=== PATIENT | male | born 1980 | race Caucasian/White ===

== ENCOUNTER → 2021-10-21 13:36 | Outpatient (BNVA) | payer OTHER, SELFPAY | PROVIDERS: Visit Provider Surgery | DX: K92.1 Melena (principal) | CPT/HCPCS: 99203 ==

== ENCOUNTER 2021-10-27 06:00 | Outpatient (RCR) | payer OTHER, SELFPAY | END 2021-11-17 23:59 | disposition home or self-care (01) | LOC: SPT 06:00 | PROVIDERS: Visit Provider Emergency Medicine Emergency Medical Services | DX: M54.50 Low back pain, unspecified (principal) | CPT/HCPCS: 97110; 97161 ==

== ENCOUNTER 2021-11-18 06:00 | Outpatient (RCR) | payer OTHER, SELFPAY | END 2021-12-17 23:59 | disposition home or self-care (01) | LOC: SPT 06:00 | PROVIDERS: Visit Provider Emergency Medicine Emergency Medical Services | DX: M54.50 Low back pain, unspecified (principal) | CPT/HCPCS: 97110 ==

== ENCOUNTER 2021-11-25 07:26 | Day surgery (SDC) | payer OTHER, SELFPAY ==
[2021-11-24 10:36] VITALS: BMI 26.1
[2021-11-25] VITALS (8 sets, daily range): BP systolic 110–136; BP diastolic 60–91; PULSE 62–74; RESP 12–18; TEMP 36.2–36.8; O2SAT 96–98
--- NOTE | 2021-11-25 08:18 | ANES.PREANE2 ---
Pre-Anesthetic Assessment Height/Weight: Height 1.91 m Weight 94.801 kg Temp Pulse Resp BP Pulse Ox O2 Del Method 98.3 F 65 16 127/82 96 11/25/21 08:04 11/25/21 08:04 11/25/21 08:04 11/25/21 08:04 11/25/21 08:04 11/25/21 08:06 Operation Date: 11/25/21 09:10 Proposed Procedures p colonoscopy with poss hemrroid banding 62321 [id number],K92.1(Not Applicable) - Jh Meza DO s Hemorroidectomy Hemorrhoid Banding(Not Applicable) - Jh Meza DO Familial anesthetic complications: None Was Beta Neptali taken within 24 hours: N/A Was Clonidine taken within 24 hours: N/A Last intake: Intake Last Liquid Date 11/24/21 Last Liquid Time 22:00 Last Solid Date 11/23/21 Last Solid Time 20:00 Social No alcohol and No tobacco Exam alert, oriented x 3, clear to auscultation bilaterally and regular rate & rhythm Airway Mallampati: Class I Comments: Comments: sainz Anesthetic Plan ASA status: 1 Anesthesia: Choice Risk of > 500 ml blood loss (7ml/kg in children): No Medications/Allergies Home Medications Medication Instructions Recorded Confirmed Last Taken Type No Known Home Medications 10/21/21 11/24/21 Unknown History Allergies Allergy/AdvReac Type Severity Reaction Status Date / Time No Known Allergies Allergy Unverified 10/21/21 13:51 [facility] Anesthesia Medical History Chronic back pain Hematochezia Surgical History History of tonsillectomy and adenoidectomy Hx of removal of cyst tail bone area Hx of removal of cyst thyroid Family History Grandfather Cancer Social History Smoking and tobacco status: former smoker Data Anesthesia Cardiac Studies: No Data to Display
[2021-11-25] MEDS: sodium chloride 0.9% 1,000 ML 30 ML IV (08:32)
--- NOTE | 2021-11-25 09:13 | PM.HP ---
Providers/Chief Complaint Chief Complaint: Bright red blood per rectum History of Present Illness James Gonzalez is a 41 year old male here for colonoscopy with possible internal hemorrhoid banding Medications/Allergies Home Medications Medication Instructions Recorded Confirmed Last Taken Type No Known Home Medications 10/21/21 11/24/21 Unknown History Allergies Allergy/AdvReac Type Severity Reaction Status Date / Time No Known Allergies Allergy Unverified 10/21/21 13:51 PFSH Acute PFSH: Medical History (Updated 11/25/21 @ 09:14 by Jh Meza DO) Chronic back pain Hematochezia Surgical History History of tonsillectomy and adenoidectomy Hx of removal of cyst tail bone area Hx of removal of cyst thyroid Family History Grandfather Cancer Social History Smoking and tobacco status: former smoker Vitals/I&O/Wt Last Vital Signs Temp 98.3 F 11/25/21 08:04 Pulse 65 11/25/21 08:04 Resp 16 11/25/21 08:04 BP 127/82 11/25/21 08:04 Pulse Ox 96 11/25/21 08:04 O2 Del Method 11/25/21 08:06 Weight last 48 hrs Weight 209 lb A&P Assessment and plan (1) Hematochezia: Status: Acute Plan Colonoscopy with possible hemorrhoidal banding Attestations Medical Necessity Statement*: Patient will be discharged home Coding Level of Care Code Acute Nurse Discharge Planner for Verna Roque Diagnoses Hematochezia K92.1
--- NOTE | 2021-11-25 10:03 | P.PCN_ITS ---
PACU note Narrative: VSS, Good respiratory effort, report to DESKTOP SUPPORT CONSULTANT Exam: awake
--- NOTE | 2021-11-25 10:03 | PM.PACU ---
PACU note Narrative: VSS, Good respiratory effort, report to OPTICAL SCIENTIST Exam: awake
== END 2021-11-25 11:15 | disposition home or self-care (01) ==
PROVIDERS: Visit Provider Surgery
PROC: 0DJD8ZZ Inspection of Lower Intestinal Tract, Via Natural or Artificial Opening Endoscopic (ICD-10-PCS; CPT 45378; principal; 2021-11-25 09:00)
PROC: (CPT 45398; 2021-11-25 09:00)
DX: K92.1 Melena (principal); K64.8 Other hemorrhoids; K63.5 Polyp of colon; Z87.891 Personal history of nicotine dependence
CPT/HCPCS: 45398; 88305; J2704; J3010; J7030

== ENCOUNTER → 2021-12-07 14:06 | Outpatient (BNVA) | payer OTHER, SELFPAY | PROVIDERS: Visit Provider Surgery | DX: K64.4 Residual hemorrhoidal skin tags (principal); K63.5 Polyp of colon | CPT/HCPCS: 99212 ==

== ENCOUNTER 2021-12-18 06:00 | Outpatient (RCR) | payer OTHER, SELFPAY | END 2022-01-17 23:59 | disposition home or self-care (01) | LOC: SPT 06:00 | PROVIDERS: PCP Emergency Medicine Emergency Medical Services; Visit Provider Emergency Medicine Emergency Medical Services | DX: M54.50 Low back pain, unspecified (principal) | CPT/HCPCS: 97110 ==

== ENCOUNTER 2022-01-18 06:00 | Outpatient (RCR) | payer OTHER, SELFPAY | END 2022-02-04 23:59 | disposition home or self-care (01) | LOC: SPT 06:00 | PROVIDERS: PCP Emergency Medicine Emergency Medical Services; Visit Provider Emergency Medicine Emergency Medical Services | DX: M54.50 Low back pain, unspecified (principal) | CPT/HCPCS: 97110 ==

== ENCOUNTER → 2024-11-04 08:34 | Outpatient (BNVA) | payer OTHER, SELFPAY | PROVIDERS: PCP Emergency Medicine Emergency Medical Services; Visit Provider Student in an Organized Health Care Education/Training Program | DX: R12 Heartburn (principal) | CPT/HCPCS: 99204 ==

== ENCOUNTER 2024-12-16 06:28 | Day surgery (SDC) | payer OTHER, SELFPAY ==
[2024-12-16 06:42] VITALS: BP 126/82; PULSE 85; RESP 17; TEMP 36.4; O2SAT 95; BMI 33.1
--- NOTE | 2024-12-16 07:00 | W.PM.OPSFHP ---
Same Day Surgery H&P Indication for Procedure/HPI DATE OF PROCEDURE: December 16, 2024 CHIEF COMPLAINT/INDICATIONFOR SURGICAL PROCEDURE: heartburn PREOP DIAGNOSIS: heartburn PLANNED PROCEDURE: Operation Date: 12/16/24 07:30 Proposed Procedures p EGD EGD with Biopsy [id number] R12(Not Applicable) - Leif Muñoz MD Medications/Allergies* Home Medications ?Medication ?Instructions ?Recorded ?Confirmed ?Type cholecalciferol (vitamin D3) 1 tab PO DAILY 11/04/24 12/16/24 History folic acid 1 tab PO DAILY 11/04/24 12/16/24 History famotidine-Ca carb-mag hydrox 10 1 tab PO DAILY 12/11/24 12/16/24 History mg-800 mg-165 mg chewable tablet (Pepcid Complete) Allergies/Adverse Reactions Allergy/AdvReac Type Severity Reaction Status Date / Time No Known Allergies Allergy Verified 12/16/24 06:40 Current Medications: Generic Name Dose Route Start Last Admin Trade Name Freq PRN Reason Stop Dose Admin Sodium Chloride 1,000 mls @ 15 mls/hr 12/16/24 06:33 12/16/24 06:54 Sodium Chloride 0.9% IV 12/17/24 06:32 15 mls/hr .Q24H PRN Administration COLONOSCOPY FLUIDS Pertinent History/Comorbid Conditions* Medical History (Updated 11/04/24 @ 09:14 by Leif Muñoz MD) External hemorrhoids Hematochezia Chronic back pain Surgical History (Updated 10/21/21 @ 14:04 by Jh Meza DO) Hx of removal of cyst thyroid Hx of removal of cyst tail bone area History of tonsillectomy and adenoidectomy Family History (Updated 10/21/21 @ 13:53 by GENOVEVA Kamara) Cancer Grandfather Social History Smoking and tobacco/nicotine status: never used tobacco/nicotine Pertinent Exam Findings alert, oriented x 3, clear to auscultation bilaterally, regular rate & rhythm and procedure specific exam findings abdomen soft, nt, nd Recommendations Risks and benefits of procedure reviewed and Patient/family agree to proceed Surgery/Procedure today Coding Level of Care Code Acute Code for Chg Fwd
--- NOTE | 2024-12-16 07:34 | ANES.PREANE2 ---
Pre-Anesthetic Assessment Height/Weight: Height 1.91 m Weight 120.202 kg Temp Pulse Resp BP Pulse Ox O2 Del Method 97.5 F L 85 17 126/82 95 Room Air 12/16/24 06:42 12/16/24 06:42 12/16/24 06:42 12/16/24 06:42 12/16/24 06:42 12/16/24 06:42 Preop Diagnosis: heartburn Operation Date: 12/16/24 07:30 Proposed Procedures p EGD EGD with Biopsy [id number] R12(Not Applicable) - Leif Muñoz MD Familial anesthetic complications: none Was Beta Neptali taken within 24 hours: N/A Was Clonidine taken within 24 hours: N/A Last intake: Intake Last Liquid Date 12/15/24 Last Liquid Time 22:00 Last Solid Date 12/15/24 Last Solid Time 20:00 Social Alcohol (social) Exam alert, oriented x 3, clear to auscultation bilaterally and regular rate & rhythm Airway Submandibular: within normal limits (full sainz) Cervical ROM: within normal limits Mallampati: Class II Comments: Comments: intact History/ROS No significant history except as noted Pulmonary None reported CV/HEM None reported None reported Hepatic None reported GI None reported Metabolic None reported Musc/skel None reported Neuropsych None reported Anesthetic Plan ASA status: 2 Anesthesia: MAC Risk of > 500 ml blood loss (7ml/kg in children): No Medications/Allergies Home Medications ?Medication ?Instructions ?Recorded ?Confirmed ?Last Taken ?Type cholecalciferol (vitamin D3) 1 tab PO DAILY 11/04/24 12/16/24 12/13/24 History folic acid 1 tab PO DAILY 11/04/24 12/16/24 12/13/24 History famotidine-Ca carb-mag hydrox 10 1 tab PO DAILY 12/11/24 12/16/24 12/15/24 History mg-800 mg-165 mg chewable tablet (Pepcid Complete) Allergies Allergy/AdvReac Type Severity Reaction Status Date / Time No Known Allergies Allergy Verified 12/16/24 06:40 Current Medications Generic Name Dose Route Start Last Admin Trade Name Freq PRN Reason Stop Dose Admin Sodium Chloride 1,000 mls @ 15 mls/hr 12/16/24 06:33 12/16/24 06:54 Sodium Chloride 0.9% IV 12/17/24 06:32 15 mls/hr .Q24H PRN Administration COLONOSCOPY FLUIDS PFSH Anesthesia Medical History (Updated 11/04/24 @ 09:14 by Leif Muñoz MD) External hemorrhoids Hematochezia Chronic back pain Surgical History Hx of removal of cyst thyroid Hx of removal of cyst tail bone area History of tonsillectomy and adenoidectomy Family History Grandfather Cancer Social History Smoking and tobacco/nicotine status: never used tobacco/nicotine
[2024-12-16 07:35] VITALS: BP 121/75; PULSE 87; RESP 17; TEMP 36.6; O2SAT 92
[2024-12-16 07:41] VITALS: BP 113/84; PULSE 87; RESP 17; O2SAT 93
--- NOTE | 2024-12-16 08:00 | ANE.PACU2 ---
Inpatient post-anesthesia follow up: Airway intact: Yes Vital signs: Temperature 97.9 F Pulse Rate 87 Respiratory Rate 17 Blood Pressure 113/84 Pulse Oximetry 93 Oxygen Delivery Me thod Room Air Oxygen Flow Rate Fraction of Inspir ed Oxygen Hydration adequate: Yes Nausea and vomiting: No Pain level: 1 Mental status: Baseline
== END 2024-12-16 08:00 | disposition home or self-care (01) ==
PROVIDERS: PCP Emergency Medicine Emergency Medical Services; Visit Provider Student in an Organized Health Care Education/Training Program
PROC: 0DJ08ZZ Inspection of Upper Intestinal Tract, Via Natural or Artificial Opening Endoscopic (ICD-10-PCS; principal; 2024-12-16 07:30)
DX: R12 Heartburn (principal)
CPT/HCPCS: 43239; 88305; J2250; J2704; J7030

== ENCOUNTER → 2024-12-30 08:00 | Outpatient (BNVA) | payer OTHER, SELFPAY | PROVIDERS: PCP Emergency Medicine Emergency Medical Services; Visit Provider Student in an Organized Health Care Education/Training Program | DX: Z09 Encounter for follow-up examination after completed treatment for conditions other than malignant neoplasm (principal); R03.0 Elevated blood-pressure reading, without diagnosis of hypertension | CPT/HCPCS: 99213 ==